=== PATIENT | female | born 1975 | race Caucasian/White ===

== ENCOUNTER 2020-03-13 19:28 | Emergency (ER) | payer OTHER ==
[~2020-03-13] VITALS: Ht 162.6 cm; Wt 88.9 kg
[~2020-03-13 19:28] MED LIST: AMLODIPINE BESY10 MG PO; CLONIDINE HCL0.1 MG PO; DOXYCYCLINE HY100 MG PO; FLUOXETINE HCL20 MG PO; LISINOPRIL5 MG PO; WELLBUTRIN XL300 MG PO
--- OUTSIDE RECORDS SUMMARY | 2020-03-13 19:32 | XMS ---
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 Violetta has no Care Guidelines for this patient. Bridget VISIT COUNT (12 MO.) 1 BEATRICE Betancur TOTAL 1 NOTE: Visits indicate total known visits. ED/C VISIT TRACKING (12 MO.) 03/13/2020 19:29 BEATRICE [facility] [place] TYPE: Emergency COMPLAINT: - ABD PAIN,CRAMPS INPATIENT VISIT TRACKING (12 MO.) No inpatient visits to display in this time frame [email or web address]
[2020-03-13] MEDS ORDERED: LEVOTHYROXINE125 MCG PO (20:04)
[2020-03-13] MEDS ORDERED: SERTRALINE HCL25 MG PO (20:04)
[2020-03-13] MEDS ORDERED: SERTRALINE HCL50 MG PO (20:05)
[2020-03-13] MEDS ORDERED: LIOTHYRONINE SO5 MCG PO (20:05)
[2020-03-13] MEDS ORDERED: CLONAZEPAM1 MG PO (20:05)
[2020-03-13] MEDS ORDERED: PROTONIX40 MG PO (21:56)
== END 2020-03-13 22:12 | disposition home or self-care (01) ==
LOC: ED 19:28
DX: R10.32 Left lower quadrant pain (principal); F17.200 Nicotine dependence, unspecified, uncomplicated; Z88.1 Allergy status to other antibiotic agents; Z79.899 Other long term (current) drug therapy
CPT/HCPCS: 80053; 81001; 83690; 84703; 85025; 99284

== ENCOUNTER 2022-01-13 15:48 | Emergency (ER) | payer OTHER ==
[~2022-01-13] VITALS: Ht 162.6 cm; Wt 98.9 kg
[~2022-01-13 15:48] MED LIST changes: +CLONAZEPAM1 MG PO; +LEVOTHYROXINE125 MCG PO; +LIOTHYRONINE SO5 MCG PO; +PROTONIX40 MG PO; +SERTRALINE HCL25 MG PO; +SERTRALINE HCL50 MG PO
[2022-01-13] MEDS ORDERED: OMEPRAZOLE20 MG PO (16:16)
== END 2022-01-13 21:54 | disposition left against medical advice (07) ==
LOC: ED 15:48
DX: Z53.21 Procedure and treatment not carried out due to patient leaving prior to being seen by health care provider (principal)
CPT/HCPCS: 36415; 80053; 81001; 83690; 84703; 85025; J2405